=== PATIENT | male | born 1990 | race Two or more races ===

== ENCOUNTER 2023-09-24 15:04 | Emergency (ER) | payer OTHER ==
[~2023-09-24] VITALS: Ht 172.7 cm; Wt 83.9 kg
[2023-09-24 17:35] LABS: HEMATOCRIT 44.1 % (39.0-48.0); HEMOGLOBIN 15.6 g/dL (13-16.00); MEAN CELL VOLUME 88.6 fL (80.0-100.00); MEAN CORPUSCULAR HEMOGLOBIN 31.3 pg (27.00-32.0); MEAN CORPUSCULAR HGB CONC 35.3 g/dl (32.0-36.0); PLATELET COUNT 302 K/uL (150-450); RED BLOOD COUNT 4.98 M/uL (4.00-6.00); RED CELL DISTRIBUTION WIDTH 12.4 % (11.5-14.5)
[2023-09-24] MEDS ORDERED: AYR SALINE50 ML NASAL (18:55)
[2023-09-24] MEDS ORDERED: ZYRTEC10 MG PO (18:55)
[2023-09-24] MEDS ORDERED: MUCINEX DM ER1 EACH PO (18:55)
== END 2023-09-24 18:59 | disposition home or self-care (01) ==
LOC: ER 15:04
PROVIDERS: General Practice
DX: J06.9 Acute upper respiratory infection, unspecified (principal); Z20.822 Contact with and (suspected) exposure to COVID-19

== ENCOUNTER 2024-03-20 16:44 | Emergency (ER) | payer OTHER ==
[~2024-03-20] VITALS: Ht 177.8 cm; Wt 97.5 kg
[~2024-03-20 16:44] MED LIST: AYR SALINE50 ML NASAL; MUCINEX DM ER1 EACH PO; ZYRTEC10 MG PO
[2024-03-20] MEDS ORDERED: 0.9 % SODIUM CHLORIDE 500 ML IV STA (17:59)
[2024-03-20] MEDS ORDERED: ACETAMINOPHEN 500 MG GEL..CAP PO ONE ×2 (19:07→23:02)
[2024-03-20 19:52] LABS: HEMATOCRIT 43.7 % (39.0-48.0); MEAN CELL VOLUME 89.6 fL (80.0-100.00); MEAN CORPUSCULAR HEMOGLOBIN 30.8 pg (27.00-32.0); MEAN CORPUSCULAR HGB CONC 34.4 g/dl (32.0-36.0); PLATELET COUNT 234 K/uL (150-450); RED BLOOD COUNT 4.88 M/uL (4.00-6.00); RED CELL DISTRIBUTION WIDTH 12.7 % (11.5-14.5)
[2024-03-20 20:10] LABS: INR 1.04; PARTIAL THROMBOPLASTIN TIME 30.5 SECONDS (22.0-34.0); PROTHROMBIN TIME 11.3 SECONDS (9.0-11.5)
[2024-03-20 20:18] LABS: ALBUMIN 3.9 gm/dL (3.4-5.0); BILIRUBIN TOTAL 0.51 mg/dL (0.3-1.2); CALCIUM 9.2 mg/dL (8.5-10.1); CREATININE SERUM 1.62 mg/dL (0.70-1.30); GFR 49.32; GLOBULINA 4.3 G/DL (2.4-3.5); POTASSIUM 3.74 mEq/L (3.5-5.1); TOTAL PROTEIN 8.2 gm/dL (6.4-8.2)
[2024-03-20 20:36] LABS: PH,URINE 7.5 (5.0-8.0); URINE APPEARANCE Turbid; URINE BILIRRUBIN Negative (NEGATIVE); URINE BLOOD Negative; URINE COLOR Yellow; URINE GLUCOSE Negative (NEGATIVE); URINE KETONE Negative (NEGATIVE); URINE LEUKOCYTE Negative; URINE NITRATE Negative; URINE PROTEIN Negative (NEGATIVE); URINE UROBILINOGEN 0.2 E.U./dl
[2024-03-20 20:40] LABS: URINE BACTERIA 361.5 uL (0.0-1933); URINE EPITHELIAL CELLS 5.7 uL (0.0-38.8); URINE RBC 13.8 uL (0.0-20.8)
[2024-03-20 20:42] LABS: URINE CAST 0.15 uL (0.0-1.40)
[2024-03-20] MEDS ORDERED: 0.9 % SODIUM CHLORIDE 1,000 ML IV STA (21:09)
[2024-03-20 22:31] LABS: CALCIUM 8.7 mg/dL (8.5-10.1); CREATININE SERUM 1.43 mg/dL (0.70-1.30); GFR 56.95; POTASSIUM 3.64 mEq/L (3.5-5.1)
[2024-03-20] MEDS ORDERED: ACETAMINOPHEN 325 MG TABLET PO STA (22:54)
== END 2024-03-21 00:05 | disposition home or self-care (01) ==
LOC: ER 16:46
PROVIDERS: General Practice
DX: R50.9 Fever, unspecified (principal); R00.2 Palpitations; Z20.822 Contact with and (suspected) exposure to COVID-19

== ENCOUNTER 2025-03-17 09:14 | Outpatient (CLI) | payer OTHER | END 2025-03-17 09:20 | disposition home or self-care (01) | LOC: MRI 09:14 | PROVIDERS: ATTEND Orthopaedic Surgery | DX: M25.562 Pain in left knee (principal); M25.561 Pain in right knee | CPT/HCPCS: 73721 ==